=== PATIENT | female | born 1940 | race Caucasian/White ===

== ENCOUNTER → 2016-12-23 | Outpatient (CLI) | payer BC ==
[~2016-12-23] MED LIST: AMLO5TAB2 PO; ATOR-54 PO; BIMA0.01 OPB; BIMA0.03 OPB; BRIM0.1S OPB; CIPR-255 PO; DORZ1SOL6 OPB; IBUP-103 PO; METF500T PO; NEPTAZANE PO; PRM/45 PO
[2016-12-23 09:55] LABS: ESTIMATED AVERAGE GLUCOSE 137 mg/dl; HA1C FLAG Normal (Normal)
== END | disposition home or self-care (01) ==
LOC: C.LAB1850 08:39
PROVIDERS: ATTEND Internal Medicine
DX: E11.9 Type 2 diabetes mellitus without complications (principal)

== ENCOUNTER → 2017-01-05 | Outpatient (CLI) | payer BC ==
--- NOTE | 2017-01-05 16:46 | DIAGNOSTIC IMAGING REPORT ---
SACRUM COCCYX MIN 2 VIEWS CLINICAL HISTORY: E78.00 [id number] pain COMPARISON STUDY: None FINDINGS: Mild degenerative change of the sacroiliac joints. Sacral foramina are symmetric. No acute abnormality of the sacrococcygeal region. Evidence for prior bladder suspension procedure. IMPRESSION: Mild to moderate degenerative change. No acute process. Electronically signed by: Bryn Aggarwal M.D. 01/05/2017 4:44 PM Dictated Date/Time: 01/05/2017 4:43 PM
--- NOTE | 2017-01-05 17:00 | DIAGNOSTIC IMAGING REPORT ---
LUMBAR SPINE 5 VIEWS HISTORY: E78.00 [id number] COMPARISON: None. FINDINGS: There is no fracture. No subluxation. Moderate degenerative disc change throughout IMPRESSION: No fracture or subluxation within the lumbar spine. Moderate degenerative disc change throughout Electronically signed by: Bryn Aggarwal M.D. 01/05/2017 4:58 PM Dictated Date/Time: 01/05/2017 4:44 PM
--- NOTE | 2017-01-05 17:02 | DIAGNOSTIC IMAGING REPORT ---
RIGHT HIP UNILATERAL 2 VIEWS CLINICAL HISTORY: Right hip pain. COMPARISON STUDY: Right hip 09/24/2014. FINDINGS: Moderate osteoarthritis within the right hip demonstrated by cartilage space narrowing, subchondral sclerosis, subchondral cystic change, and marginal osteophytes. This is similar to the prior study. No acute fracture or dislocation. The visualized pelvic bones are intact. Soft tissues are unremarkable. IMPRESSION: Moderate right hip osteoarthritis. This is similar to the prior study. No fractures. Electronically signed by: Simón Saab M.D. 01/05/2017 5:00 PM Dictated Date/Time: 01/05/2017 4:58 PM
== END | disposition home or self-care (01) ==
LOC: C.RAD1850 15:43
PROVIDERS: ATTEND Internal Medicine
DX: E78.00 Pure hypercholesterolemia, unspecified (principal); M16.11 Unilateral primary osteoarthritis, right hip

== ENCOUNTER 2017-01-12 12:34 | Observation (INO) | payer BC ==
[~2017-01-12] VITALS: Ht 162.6 cm; Wt 61.1 kg
[~2017-01-12 12:34] MED LIST changes: -BIMA0.01 OPB; -IBUP-103 PO
[2017-01-12] MEDS ORDERED: IBUP-103 PO (14:09)
[2017-01-12] MEDS ORDERED: BIMA0.01 OPB (14:14)
--- NOTE | 2017-01-12 14:57 | DIAGNOSTIC IMAGING REPORT ---
CHEST ONE VIEW PORTABLE CLINICAL HISTORY: Chest pain. COMPARISON STUDY: None. FINDINGS: Lung volumes are normal. Lungs are clear. There is no pneumothorax or pleural effusion. Cardiac size is normal. Mediastinal contours are normal. There is no evidence of pulmonary edema. There are cholecystectomy clips. IMPRESSION: No acute cardiopulmonary findings. Electronically signed by: Quirino Padilla M.D. 01/12/2017 2:56 PM Dictated Date/Time: 01/12/2017 2:54 PM
[2017-01-12 15:36] LABS: BASO % 0.2 %; BASO ABS # 0.01 K/uL (0-0.2); COMPLETE YES; EOS % 2.2 %; HEMATOCRIT 41.4 % (37-47); IG% 0.2 %; LYMPH % 44.8 %; LYMPH ABS # 2.19 K/uL (1.2-3.4); MEAN CELL VOLUME 93.7 fL (80-100); MEAN CORPUSCULAR HEMOGLOBIN 32.8 pg (25-34); MEAN PLATELET VOLUME 10.6 fL (7.4-10.4); MONO % 8.6 %; PLATELET COUNT 141 K/uL (130-400); RED BLOOD COUNT 4.42 M/uL (4.2-5.4); WHITE BLOOD COUNT 4.89 K/uL (4.8-10.8)
[2017-01-12] MEDS ORDERED: NITROGLYCERIN OINT 2% 1GM PACKET EXT ONE (15:45)
[2017-01-12 15:47] LABS: PARTIAL THROMBOPLASTIN RATIO 1.1; PROTHROMBIN TIME (PATIENT) 10.4 SECONDS (9.0-12.0)
[2017-01-12 16:00] LABS: BUN/CREATININE RATIO 15.7 (10-20); CALCIUM 8.8 mg/dl (8.5-10.1); CREATININE 0.82 mg/dl (0.60-1.20); POTASSIUM 3.7 mmol/L (3.5-5.1)
--- NOTE | 2017-01-12 16:40 | History and Physical ---
History & Physical Date of Service Jan 12, 2017. History & Physical cp rule out acs [id number] DM, HTN dyslipidemia, age, typical chest pain , eliza score 3 stress test ordered
[2017-01-12] MEDS ORDERED: HydrALAZINE HCL 20 MG/ML VIAL IV. PRN (16:45)
[2017-01-12 17:57] VITALS: BP 155/94; PULSE 100; TEMP 36.8; O2SAT 100
--- NOTE | 2017-01-12 18:01 | EMERGENCY ROOM VISIT NOTE ---
History Report prepared by Amos: Dee Sanchez Under the Supervision of: Dr. Kemal Henderson M.D. First contact with patient: 14:22 Chief Complaint: CHEST PAIN Stated Complaint: CHEST PAIN DOWN LEFT ARM Nursing Triage Summary: Triage note: pt reports last night at approx 2130 she had an episode of left sided chest pain and left arm pain that lasted approx 8 miniutes. pt reports her left chest feels sore today. History of Present Illness The patient is a 76 year old female who presents to the Emergency Room with complaints of left sided chest pain starting last night. She is unable to characterize the chest pain she had yesterday. The pain radiated to the left arm. She also had numbness and tingling in the left arm. She was sitting down and watching TV when she had an onset of her pain. She had an improvement in her pain with ambulation. The chest pain lasted for about 5-8 minutes. Her left arm symptoms lasted for a longer amount of time than the chest pain but have resolved. She also had some shortness of breath. Today, the patient started having left sided chest soreness which only occurs with palpation. She otherwise denies any pain. The patient normally walks around about 3-4 times a day and she has not noticed any chest pain with exertion. She denies lightheadedness, diaphoresis, fevers, chills, nausea, vomiting, abdominal pain, back pain, diarrhea, or any other complaints. She denies any history of similar symptoms. She has a history of hypertension and borderline diabetes. She has a family history of stroke and aneurysm. About 2 weeks ago, she lost her balance and fell down. She denies any injuries. About 3 weeks ago, she had a dry cough but denies any other cold-like symptoms. She does not smoke cigarettes. Source of History: patient Onset: last night Position: chest (left) Quality: other (soreness currently) Modifying Factors (Worsening): other (palpation) Associated Symptoms: + SOB, No back pain, No chills, No diaphoresis, No diarrhea, No fevers, No nausea, No vomiting Review of Systems See HPI for pertinent positives & negatives. A total of 10 systems reviewed and were otherwise negative. Past Medical & Surgical Medical Problems: (1) Borderline diabetes (2) chest pain rule out acs (3) Hypertension (4) Kidney stone Family History Diabetes mellitus FH: aneurysm Hypertension Kidney disease Kidney stones Seizures Stroke Social History Smoking Status: Never Smoker Alcohol Use: none Marital Status: Occupation Status: retired Current/Historical Medications Scheduled Amlodipine Besylate (Norvasc), 5 MG PO DAILY Atorvastatin (Lipitor), 20 MG PO HS Bimatoprost (Lumigan), 1 DROP OPB HS Brimonidine Tartrate (Alphagan P Oph), 1 DROP OPB BID Dorzolamide Hcl-Timolol Maleat (Cosopt Oph), 1 DROP OPB BID Estrogens, Conjugated (Premarin), 0.45 MG PO DAILY Ibuprofen Tab (Advil), 200 MG PO DAILY Metformin Hcl (Glucophage), 500 MG PO BID [Neptazane], 25 MG PO BID Allergies Coded Allergies: No Known Allergies (Verified , 01/12/17) Physical Exam Vital Signs Date Time Temp Pulse Resp B/P Pulse Ox O2 Delivery O2 Flow Rate FiO2 01/12/17 16:17 156/86 01/12/17 16:03 181/108 01/12/17 15:40 98 Room Air 01/12/17 12:43 36.9 71 18 138/90 97 Room Air Physical Exam Constitutional: Vital signs reviewed. Eyes: Pupils are equal round reactive to light. Conjunctiva are noninjected. ENT: Pharynx is clear without erythema or exudate. Mucous membranes are moist. Neck supple without meningeal signs. Respiratory: Clear to auscultation bilaterally. Breath sounds are equal bilaterally. Cardiovascular: Regular rate and rhythm. No rubs or gallops. GI: Soft, nondistended and nontender. Bowel sounds are present. Musculoskeletal: No peripheral edema. No lower extremity tenderness. Integumentary: No cyanosis. Neurological: The patient is awake and alert. No focal deficits. Psychiatric: Normal affect. Medical Decision & Procedures ER Provider Diagnostic Interpretation: X-ray results as stated below per interpretation by me and the radiologist: CHEST ONE VIEW PORTABLE CLINICAL HISTORY: Chest pain. COMPARISON STUDY: None. FINDINGS: Lung volumes are normal. Lungs are clear. There is no pneumothorax or pleural effusion. Cardiac size is normal. Mediastinal contours are normal. There is no evidence of pulmonary edema. There are cholecystectomy clips. IMPRESSION: No acute cardiopulmonary findings. Electronically signed by: Quirino Padilla M.D. 01/12/2017 2:56 PM Dictated Date/Time: 01/12/2017 2:54 PM Laboratory Results 01/12/17 15:25 Red Blood Count 4.42, Mean Corpuscular Volume 93.7, Mean Corpuscular Hemoglobin 32.8, Mean Corpuscular Hemoglobin Concent 35.0, Mean Platelet Volume 10.6, Neutrophils (%) (Auto) 44.0, Lymphocytes (%) (Auto) 44.8, Monocytes (%) (Auto) 8.6, Eosinophils (%) (Auto) 2.2, Basophils (%) (Auto) 0.2, Neutrophils # (Auto) 2.15, Lymphocytes # (Auto) 2.19, Monocytes # (Auto) 0.42, Eosinophils # (Auto) 0.11, Basophils # (Auto) 0.01 01/12/17 15:25 Test 01/12/17 15:25 01/12/17 15:29 White Blood Count 4.89 K/uL (4.8-10.8) Red Blood Count 4.42 M/uL (4.2-5.4) Hemoglobin 14.5 g/dL (12.0-16.0) Hematocrit 41.4 % (37-47) Mean Corpuscular Volume 93.7 fL (80-100) Mean Corpuscular Hemoglobin 32.8 pg (25-34) Mean Corpuscular Hemoglobin Concent 35.0 g/dl (32-36) Platelet Count 141 K/uL (130-400) Mean Platelet Volume 10.6 fL (7.4-10.4) Neutrophils (%) (Auto) 44.0 % Lymphocytes (%) (Auto) 44.8 % Monocytes (%) (Auto) 8.6 % Eosinophils (%) (Auto) 2.2 % Basophils (%) (Auto) 0.2 % Neutrophils # (Auto) 2.15 K/uL (1.4-6.5) Lymphocytes # (Auto) 2.19 K/uL (1.2-3.4) Monocytes # (Auto) 0.42 K/uL (0.11-0.59) Eosinophils # (Auto) 0.11 K/uL (0-0.5) Basophils # (Auto) 0.01 K/uL (0-0.2) RDW Standard Deviation 44.2 fL (36.4-46.3) RDW Coefficient of Variation 12.9 % (11.5-14.5) Immature Granulocyte % (Auto) 0.2 % Immature Granulocyte # (Auto) 0.01 K/uL (0.00-0.02) Prothrombin Time 10.4 SECONDS (9.0-12.0) Prothromb Time International Ratio 1.0 (0.9-1.1) Activated Partial Thromboplast Time 27.6 SECONDS (21.0-31.0) Partial Thromboplastin Ratio 1.1 Anion Gap 11.0 mmol/L (3-11) Est Creatinine Clear Calc Drug Dose 49.6 ml/min Estimated GFR () 80.0 Estimated GFR (Non- 69.0 BUN/Creatinine Ratio 15.7 (10-20) Calcium Level 8.8 mg/dl (8.5-10.1) Bedside Troponin I 0.000 ng/ml (0-0.045) Laboratory results as reviewed by me. Medications Administered Medications (Trade) Dose Ordered Sig/Hilaria Route Start Time Stop Time Status Last Admin Dose Admin Nitroglycerin (Nitroglycerin 2% Oint) 0.5 inch NOW ONCE EXT 01/12/17 15:45 01/12/17 15:46 DC 01/12/17 15:54 0.5 INCH ECG Indication: chest pain Rate (beats per minute): 74 Rhythm: normal sinus Findings: RBBB (incomplete), no acute ischemic change, no ectopy ED Course 1422: The patient was evaluated in room C02B. A complete history and physical exam was performed. 1545: Nitroglycerin 0.5 inch EXT 1606: I reevaluated the patient who currently denies any symptoms. I discussed the results and findings with her. She verbalized agreement of the treatment plan. The patient will be evaluated for further management and care. 1608: I discussed the patient's case with Dr. Thacker, from [facility]. Medical Decision This is a 76-year-old female who presents with chest discomfort. Differential diagnosis includes unstable angina, SD, pleurisy, pneumonia, GERD. I did perform a limited focused review of portions of the patient's old chart on the electronic medical record. The patient has had no recent pertinent visits to this hospital. I did evaluate the patient as noted above. IV access was established. The patient was placed on a continuous shelter monitor. Her blood pressure was elevated. I did give her nitroglycerin paste. I did order and personally review the patient's 12-lead EKG and chest x-ray as described above. She has no acute ischemic changes. I did order and review the patient's blood work as noted in the electronic medical record. Troponin is negative. I did reassess the patient. She has no chest discomfort. I did discuss her test results with her. I did recommend hospitalization for repeat cardiac enzymes and monitoring of her blood pressure. I did discuss the case with the hospitalist and case management associate. Consults Time Called: 1606 Consulting Physician: Dr. Thacker, from [facility] Returned Call: 1608 I discussed the patient's case with Dr. Thacker, from [facility]. Impression Primary Impression: Acute chest pain Additional Impression: Hypertension Scribe Attestation The scribe's documentation has been prepared under my direct and personally reviewed by me in its entirety. I confirm that the note above accurately reflects all work, treatment, procedures, and medical decision making performed by me. Departure Information Dispostion Being Evaluated By Hospitalist Referrals Naldo Flanagan M.D. (PCP) Patient Instructions My [facility] Problem Qualifiers
[2017-01-12 18:02] VITALS: Ht 162.6 cm; Wt 61.1 kg
--- NOTE | 2017-01-12 18:32 | HISTORY & PHYSICAL EXAMINATION ---
DATE OF ADMISSION: 01/12/2017 This is observation H\T\P, 25 minutes. CHIEF COMPLAINT: Intermittent chest pain. HISTORY OF PRESENT ILLNESS: A 76-year-old white female with a significant past medical history of hypertension, dyslipidemia, diabetic, coming into the hospital Emergency Department because of the above chief complaint. She reported left side chest pain, started from last night. The pain was dull pain, 5-6/10, radiation to the left arm, lasting about 4-5 minutes. Also associated with numbness in her left arm. The pain was started when she was sitting and watching TV. It is improved when she is up and walks. The left arm symptoms last for a longer amount of time. She was having some shortness of breath. Today, she has left side chest pain again, associated with palpitations. She reported most of the time she is up and walks without any problem of chest pain. In the Emergency Room, she had lab studies, chest x-ray and EKG. It was not remarkable. However, the blood pressure was significantly high, up to 181/108. I was asked for possible observation of patient in the hospital. When I see the patient, she is awake, alert, and orientated, pleasant. Denied any pain, denied any cough, shortness of breath. No fever or chills. Not feeling generalized weakness. Denied sputum. Denied chest pain. Denied nauseation, vomiting, abdominal pain, diarrhea, or constipation. Denied dysuria, urgency and frequencies. Denied headache, blurry vision, double vision. Denied facial droop, slurry speech or local weakness. PAST MEDICAL HISTORY: Like I mentioned in the above, which includes hypertension, dyslipidemia, well controlled diabetic and arthritis. SOCIAL HISTORY: Denied alcohol abuse disorder, denied illicit drug abuse, denied tobacco abuse disorder. FAMILY HISTORY: Includes diabetic, stroke, seizure. CURRENT MEDICATIONS: Include: 1. Amlodipine 5 mg p.o. daily. 2. Atorvastatin 20 mg p.o. at bedtime. 3. Lumigan 1 drop OPB at bedtime. 4. Alphagan 1 drop OPB b.i.d. 5. Cosopt 1 drop OPB b.i.d. 6. Premarin 0.45 mg p.o. daily. 7. Advil 200 mg p.o. daily. 8. Metformin 500 mg p.o. b.i.d. 9. Neptazane 25 mg p.o. b.i.d. ALLERGIES: No known drug allergies. PHYSICAL EXAMINATION: VITAL SIGNS: Temperature is 36.9, pulse 71, respiration rate 18, blood pressure 138/90, pulse ox was 97% in room air. GENERAL: The patient is a white female, awake, alert and orientated, pleasant, conversational, follows all commands. HEAD: Normocephalic. EYES: Pupils equal, round, respond to light. EARS: Ear was normal. NOSE: Normal. NECK: Supple. Thyroid, no enlargement. Trachea midline. HEART: Regular rhythm. S1, S2. LUNGS: Decreased breathing sounds. There was no wheezing, rhonchi or crackle. ABDOMEN: Soft, nontender. Bowel sound was positive. GENITOURINARY AND RECTAL: Deferred. Bilateral CVA was nontender. MUSCULOSKELETAL SYSTEM: There was no edema of bilateral lower extremities. There was no cyanosis, clubbing. SKIN: Has no rashes, no cyanosis. NEUROLOGICAL EVALUATION: She is awake, alert, and orientated, no focal deficits. Cranial nerves II-XII were intact. PSYCHIATRY: Normal affect. LABORATORY STUDIES: WBC 4.8, hemoglobin 14, platelet 140. PT/INR was 10/1. BMP: Sodium 139, potassium 3.7, BUN 30, creatinine 0.8. Blood glucose 115. EKG, there were no ST-T phase changes. Normal sinus rhythm. IMAGING STUDIES: Chest x-ray has no acute disease. ASSESSMENT: A 76-year-old white female with the problems seen below: 1. Chest pain, need to rule acute coronary syndrome. 2. Dyslipidemia. 3. Hypertension. 4. Diabetic. PLAN: 1. Currently, cardiac enzyme troponin is negative. No EKG changes. However, patient has risk factors for the ACS. Her JACQUELINE score is around 3, which include her age, risk factors and possible typical chest pain radiation to the left arm. JACQUELINE score is 3, risk of ACS is 13%. Therefore, I will observe her in the hospital. Check cardiac enzyme troponin x2 sets more, chest pain protocol. We will start aspirin, check fasting lipid panel, check hemoglobin A1c. Start a beta vitaly. At the same time because JACQUELINE score is 3, I will order stress echo tomorrow to rule out acute coronary syndrome. 2. Deep venous thrombosis prophylaxis will be heparin. GI prophylaxis will be Protonix. I discussed with patient about the care plan. I answered all the questions. The patient is full code.
[2017-01-12] MEDS ORDERED: GLUCOSE 10 TABS/TUBE PO PRN (19:00)
[2017-01-12] MEDS ORDERED: GLUCOSE 40% GEL 15 GM TUBE PO PRN (19:00)
[2017-01-12] MEDS ORDERED: GLUCAGON FOR INJ 1 MG VIAL SQ PRN (19:00)
[2017-01-12] MEDS ORDERED: DEXTROSE 50% 50 ML SYR IV PRN (19:00)
[2017-01-12] MEDS: INSULIN ASPART 100 UNITS/ML 3 ML PEN SC SCH (20:44)
[2017-01-12] MEDS: HEPARIN SOD 5000 UNIT/0.5 ML CARP SQ SCH (20:48)
[2017-01-12] MEDS: DORZOLAMIDE/TIMOLOL 22.3/6.8MG/ML 10 ML BTL OPB SCH (20:48)
[2017-01-12] MEDS: METOPROLOL TARTRATE 25 MG TAB PO SCH (20:54)
[2017-01-12 20:55] VITALS: BP 150/77; PULSE 96
[2017-01-12] MEDS ORDERED: ATORVASTATIN 20 MG TAB PO SCH (21:00)
[2017-01-12] MEDS ORDERED: METHAZOLAMIDE 25 MG PO SCH (21:00)
[2017-01-12] MEDS ORDERED: BRIMONIDINE TARTRATE OPB SCH (21:00)
[2017-01-12] MEDS ORDERED: BIMATOPROST 0.01% OP SOLN 2.5 ML BTL OPB SCH (21:00)
[2017-01-12] MEDS ORDERED: IV FLUIDS COMPLETED PRN (21:30)
[2017-01-12] MEDS: NITROGLYCERIN OINT 2% 1GM PACKET EXT SCH (22:56)
[2017-01-12 23:05] LABS: CKMB/CK RATIO 2.4 (0-3.0)
[2017-01-13] VITALS (7 sets, daily range): BP systolic 132–148; BP diastolic 74–79; PULSE 62–70; TEMP 36.8–36.9; O2SAT 95–98
[2017-01-13] MEDS: NITROGLYCERIN OINT 2% 1GM PACKET EXT SCH ×2 (04:25→10:49)
[2017-01-13] MEDS: INSULIN ASPART 100 UNITS/ML 3 ML PEN SC SCH ×2 (06:30→11:00)
[2017-01-13 07:26] LABS: CHOLESTEROL 119 mg/dl (0-200); CHOLESTEROL/HDL RATIO 2.7; CKMB/CK RATIO 2.5 (0-3.0); HDL CHOLESTEROL 44 mg/dl; LDL CHOLESTEROL CALCULATED 47 mg/dl; TRIGLYCERIDES 139 mg/dl (0-150); VERY LOW DENSITY LIPOPROT CALC 28 mg/dl
[2017-01-13 07:53] LABS: ESTIMATED AVERAGE GLUCOSE 123 mg/dl; HA1C FLAG Normal (Normal)
[2017-01-13] MEDS ORDERED: ASPIRIN 325 MG ECTAB PO SCH (09:00)
[2017-01-13] MEDS ORDERED: IBUPROFEN 200 MG TAB PO SCH (09:00)
[2017-01-13] MEDS ORDERED: AMLODIPINE BESYLATE 5 MG TAB PO SCH (09:00)
[2017-01-13] MEDS ORDERED: PANTOprazole SOD 40 MG TAB PO SCH (09:00)
[2017-01-13] MEDS: HEPARIN SOD 5000 UNIT/0.5 ML CARP SQ SCH (09:00)
[2017-01-13] MEDS ORDERED: DOBUTamine HCL 12.5 MG/ML 20 ML VIAL ONE (09:13)
[2017-01-13] MEDS ORDERED: METOPROLOL TARTRATE 1 MG/ML VIAL ONE (09:13)
[2017-01-13] MEDS ORDERED: ATROPINE SULFATE 0.1 MG/ML 5ML SYR ONE (09:13)
[2017-01-13] MEDS: METOPROLOL TARTRATE 25 MG TAB PO SCH (10:44)
[2017-01-13] MEDS: DORZOLAMIDE/TIMOLOL 22.3/6.8MG/ML 10 ML BTL OPB SCH (10:45)
--- NOTE | 2017-01-13 12:45 | DOBUTAMINE ECHO ---
*NOTICE TO RECEIVING [employer] This information is strictly Confidential and protected under [place] law. [place] law prohibits you from making any further disclosure of this information unless further disclosure is expressly permitted by the written consent of the person to whom it pertains or is authorized by law. A general authorization for the release of medical or other information is not sufficient for this purpose. Hospital accepts no responsibility if the information is made available to any other person, INCLUDING THE PATIENT. Interpretation Summary * Name: SIRENA TIJERINA Study Date: 01/13/2017 09:38 AM BP: 126/68 mmHg * Patient Location: 89 HR: 66 * : 1940 (M/d/yyyy) Gender: Female Height: 64 in * Age: 76 yrs Ethnicity: CA Weight: 139 lb * Ordering Physician: Elias Thacker * Referring Physician: Naldo Flanagan * Performed By: Cherry Huggins RCS * * Reason For Study: CHEST PAIN * BSA: 1.7 m2 * -- Conclusions -- * Mild aortic regurgitation. * Grade I diastolic dysfunction, (abnormal relaxation pattern). * No evidence of inducible ischemia. Normal baseline LV function with good augmentation on dobutamine. Increased atrial ectopy with infusion without additional EKG changes. No symptoms reported. Procedure Details * DOBUTAMINE ECHO, CPT#01506 * ECHO COLOR FLOW, CPT #[id number] * ECHO DOPPLER, CPT #[id number] Left Ventricular Findings with Stress * No evidence of inducible ischemia. Normal baseline LV function with good augmentation on dobutamine. Increased atrial ectopy with infusion without additional EKG changes. No symptoms reported. Left Ventricle * The left ventricle is normal in size. * Ejection Fraction = 50-55%. * The left ventricular wall motion is normal at rest. * Resting wall motion: Normal. Stress wall motion: Appropriate increase in Left ventricular systolic function and decrease in cavity size. No stress induced segmental wall motion abnormalities. Right Ventricle * The right ventricle is grossly normal size. Mitral Valve * The mitral valve is grossly normal. Tricuspid Valve * The tricuspid valve is not well visualized. * There is mild tricuspid regurgitation. Aortic Valve * The aortic valve is trileaflet. * No hemodynamically significant valvular aortic stenosis. * Mild aortic regurgitation. Pericardium * There is no pericardial effusion. Stress Parameters * Normal baseline electrocardiogram. * Single PVC * Stress ECG: No ST changes. No arrhythmias. * Arrhythmia induced during stress: frequent PAC's. * The stress portion of this study was personally supervised by the undersigned interpreting physician. * Rest heart rate was '66' BPM. * Rest blood pressure was '126/68' * Maximum heart rate achieved was 141 bpm. * Maximum heart rate was 98 % of maximum age-predicted heart rate. * Maximum blood pressure was '180/38' * Maximum Dobutamine infusion rate was '30' mcg/kg/min. * A total of 0 mg of intravenous Atropine was used to supplement Dobutamine for heart rate response. * Dobutamine infusion was terminated due to achieving target heart rate * A total of 5.0 mg of IV Metoprolol was administered to reverse Dobutamine-induced tachycardia. Left Ventricular Diastolic Function * Grade I diastolic dysfunction, (abnormal relaxation pattern). MMode 2D Measurements and Calculations IVSd 1.1 cm IVSs 1.4 cm LVIDd 2.7 cm LVIDs 1.9 cm LVPWd 0.87 cm LVPWs 1.3 cm IVS/LVPW 1.3 FS 27.8 % EDV(Teich) 26.8 ml ESV(Teich) 11.8 ml EF(Teich) 55.8 % EDV(cubed) 19.5 ml ESV(cubed) 7.4 ml EF(cubed) 62.3 % % IVS thick 24.3 % % LVPW thick 50.5 % LV mass(C)d 70.8 grams LV mass(C)dI 42.3 grams/m\S\2 LV mass(C)s 79.2 grams LV mass(C)sI 47.2 grams/m\S\2 SV(Teich) 15.0 ml SI(Teich) 8.9 ml/m\S\2 SV(cubed) 12.2 ml SI(cubed) 7.3 ml/m\S\2 Ao root diam 3.3 cm Ao root area 8.6 cm\S\2 ACS 1.7 cm LA dimension 2.8 cm LA/Ao 0.84 LVOT diam 1.8 cm LVOT area 2.5 cm\S\2 LVAd ap4 23.3 cm\S\2 LVLd ap4 7.0 cm EDV(MOD-sp4) 63.7 ml EDV(sp4-el) 65.8 ml LVAs ap4 13.2 cm\S\2 LVLs ap4 5.5 cm ESV(MOD-sp4) 28.0 ml ESV(sp4-el) 27.0 ml EF(MOD-sp4) 56.1 % EF(sp4-el) 59.1 % LVAd ap2 23.7 cm\S\2 LVLd ap2 7.3 cm EDV(MOD-sp2) 66.0 ml EDV(sp2-el) 65.5 ml LVAs ap2 15.5 cm\S\2 LVLs ap2 6.3 cm ESV(MOD-sp2) 32.7 ml ESV(sp2-el) 32.4 ml EF(MOD-sp2) 50.4 % EF(sp2-el) 50.5 % LVLd %diff 3.9 % EDV(MOD-bp) 63.7 ml LVLs %diff 13.4 % ESV(MOD-bp) 32.1 ml EF(MOD-bp) 49.6 % SV(MOD-sp4) 35.7 ml SI(MOD-sp4) 21.3 ml/m\S\2 SV(MOD-sp2) 33.2 ml SI(MOD-sp2) 19.8 ml/m\S\2 SV(MOD-bp) 31.6 ml SI(MOD-bp) 18.9 ml/m\S\2 SV(sp4-el) 38.9 ml SI(sp4-el) 23.2 ml/m\S\2 SV(sp2-el) 33.1 ml SI(sp2-el) 19.7 ml/m\S\2 Doppler Measurements and Calculations Ao V2 max 105.9 cm/sec Ao max PG 4.5 mmHg Ao max PG (full) 2.1 mmHg EVELYN(V,A) 1.8 cm\S\2 EVELYN(V,D) 1.8 cm\S\2 AI max lewis 472.5 cm/sec AI max PG 89.3 mmHg AI dec slope 237.0 cm/sec\S\2 AI P1/2t 583.9 msec LV V1 max PG 2.4 mmHg LV V1 max 77.1 cm/sec PA V2 max 94.2 cm/sec PA max PG 3.5 mmHg TR max lewis 313.2 cm/sec
--- NOTE | 2017-01-13 15:11 | Discharge Instructions ---
Discharge Instructions Admission Reason for Admission: Chest Pain Rule Out Acs Discharge Discharge Diagnosis / Problem: stable for home Discharge Goals Goal(s): Decrease discomfort Activity Recommendations Activity Limitations: resume your previous activity . Current Hospital Diet Patient's current hospital diet: Diabetes Type 2 Diet Discharge Diet Recommended Diet: AHA Diet (Heart Healthy), Low Sodium Diet (2gm Na) Pending Studies Studies pending at discharge: no Laboratory Results Hemoglobin A1c Test 01/13/17 06:35 Range/Units Estimated Average Glucose 123 mg/dl Hemoglobin A1c 5.9 H 4.5-5.6 % Lipid Panel Test 01/13/17 06:35 Range/Units Triglycerides Level 139 0-150 mg/dl Cholesterol Level 119 0-200 mg/dl HDL Cholesterol 44 mg/dl Cholesterol/HDL Ratio 2.7 LDL Cholesterol, Calculated 47 mg/dl Medical Emergencies . Who to Call and When: Medical Emergencies: If at any time you feel your situation is an emergency, please call 911 immediately. . Non-Emergent Contact Non-Emergency issues call your: Primary Care Provider . . "Provider Documentation" section prepared by Henna Quezada. VTE Core Measure Inpt VTE Proph given/why not?: Unfractionated heparin SQ
--- NOTE | 2017-01-13 15:17 | Discharge Summary ---
Discharge Summary Date of Service Jan 13, 2017. Discharge Summary Admission Date: Jan 12, 2017 at 16:38 Discharge Date: Jan 13, 2017 Discharge Disposition: Home Principal Diagnosis: Stable for home. Problems/Secondary Diagnoses: (1) Hypertension Status: Chronic Procedures: [address] [place] [address] Performing Location: [facility] Patient Name: SIRENA TIJERINA Dictating Provider: Jaden Aleman MD Dictation Date: Report Signed By: Date: 1940 Pickling Grader: LETTY Room/Bed: [facility] Family Physician: Naldo Flanagan M.D. SC: C.MED Primary Care Physician: Naldo Flanagan M.D. Adm Date: 01/12/17 Attending Physician: Elias Thacker MD, PhD Dis Date: Admitting Physician: Elias Thacker MD, PhD Ordering Physician: *NOTICE TO RECEIVING LIBERTARIAN AGENCY This information is strictly Confidential and protected under [place] law. [place] law prohibits you from making any further disclosure of this information unless further disclosure is expressly permitted by the written consent of the person to whom it pertains or is authorized by law. A general authorization for the release of medical or other information is not sufficient for this purpose. Hospital accepts no responsibility if the information is made available to any other person, INCLUDING THE PATIENT. Interpretation Summary * Name: SIRENA TIJERINA Study Date: 01/13/2017 09:38 AM BP: 126/68 mmHg * Patient Location: [facility] HR: 66 * : 1940 (M/d/yyyy) Gender: Female Height: 64 in * Age: 76 yrs Ethnicity: [place] Weight: 139 lb * Ordering Physician: Elias Thacker * Referring Physician: Naldo Flanagan * Performed By: [facility] * * Reason For Study: CHEST PAIN * BSA: 1.7 m2 * -- Conclusions -- * Mild aortic regurgitation. * Grade I diastolic dysfunction, (abnormal relaxation pattern). * No evidence of inducible ischemia. Normal baseline LV function with good augmentation on dobutamine. Increased atrial ectopy with infusion without additional EKG changes. No symptoms reported. Procedure Details * DOBUTAMINE ECHO, CPT#75976 * ECHO COLOR FLOW, CPT #[id number] * ECHO DOPPLER, CPT #68500 Left Ventricular Findings with Stress * No evidence of inducible ischemia. Normal baseline LV function with good augmentation on dobutamine. Increased atrial ectopy with infusion without additional EKG changes. No symptoms reported. Left Ventricle * The left ventricle is normal in size. * Ejection Fraction = 50-55%. * The left ventricular wall motion is normal at rest. * Resting wall motion: Normal. Stress wall motion: Appropriate increase in Left ventricular systolic function and decrease in cavity size. No stress induced segmental wall motion abnormalities. Right Ventricle * The right ventricle is grossly normal size. Mitral Valve * The mitral valve is grossly normal. Tricuspid Valve * The tricuspid valve is not well visualized. * There is mild tricuspid regurgitation. Aortic Valve * The aortic valve is trileaflet. * No hemodynamically significant valvular aortic stenosis. * Mild aortic regurgitation. Pericardium * There is no pericardial effusion. Stress Parameters * Normal baseline electrocardiogram. * Single PVC * Stress ECG: No ST changes. No arrhythmias. * Arrhythmia induced during stress: frequent PAC's. * The stress portion of this study was personally supervised by the undersigned interpreting physician. * Rest heart rate was '66' BPM. * Rest blood pressure was '126/68' * Maximum heart rate achieved was 141 bpm. * Maximum heart rate was 98 % of maximum age-predicted heart rate. * Maximum blood pressure was '180/38' * Maximum Dobutamine infusion rate was '30' mcg/kg/min. * A total of 0 mg of intravenous Atropine was used to supplement Dobutamine for heart rate response. * Dobutamine infusion was terminated due to achieving target heart rate * A total of 5.0 mg of IV Metoprolol was administered to reverse Dobutamine- induced tachycardia. Left Ventricular Diastolic Function * Grade I diastolic dysfunction, (abnormal relaxation pattern). MMode 2D Measurements and Calculations IVSd 1.1 cm IVSs 1.4 cm LVIDd 2.7 cm LVIDs 1.9 cm LVPWd 0.87 cm LVPWs 1.3 cm IVS/LVPW 1.3 FS 27.8 % EDV(Teich) 26.8 ml ESV(Teich) 11.8 ml EF(Teich) 55.8 % EDV(cubed) 19.5 ml ESV(cubed) 7.4 ml EF(cubed) 62.3 % % IVS thick 24.3 % % LVPW thick 50.5 % LV mass(C)d 70.8 grams LV mass(C)dI 42.3 grams/m\S\2 LV mass(C)s 79.2 grams LV mass(C)sI 47.2 grams/m\S\2 SV(Teich) 15.0 ml SI(Teich) 8.9 ml/m\S\2 SV(cubed) 12.2 ml SI(cubed) 7.3 ml/m\S\2 Ao root diam 3.3 cm Ao root area 8.6 cm\S\2 ACS 1.7 cm LA dimension 2.8 cm LA/Ao 0.84 LVOT diam 1.8 cm LVOT area 2.5 cm\S\2 LVAd ap4 23.3 cm\S\2 LVLd ap4 7.0 cm EDV(MOD-sp4) 63.7 ml EDV(sp4-el) 65.8 ml LVAs ap4 13.2 cm\S\2 LVLs ap4 5.5 cm ESV(MOD-sp4) 28.0 ml ESV(sp4-el) 27.0 ml EF(MOD-sp4) 56.1 % EF(sp4-el) 59.1 % LVAd ap2 23.7 cm\S\2 LVLd ap2 7.3 cm EDV(MOD-sp2) 66.0 ml EDV(sp2-el) 65.5 ml LVAs ap2 15.5 cm\S\2 LVLs ap2 6.3 cm ESV(MOD-sp2) 32.7 ml ESV(sp2-el) 32.4 ml EF(MOD-sp2) 50.4 % EF(sp2-el) 50.5 % LVLd %diff 3.9 % EDV(MOD-bp) 63.7 ml LVLs %diff 13.4 % ESV(MOD-bp) 32.1 ml EF(MOD-bp) 49.6 % SV(MOD-sp4) 35.7 ml SI(MOD-sp4) 21.3 ml/m\S\2 SV(MOD-sp2) 33.2 ml SI(MOD-sp2) 19.8 ml/m\S\2 SV(MOD-bp) 31.6 ml SI(MOD-bp) 18.9 ml/m\S\2 SV(sp4-el) 38.9 ml SI(sp4-el) 23.2 ml/m\S\2 SV(sp2-el) 33.1 ml SI(sp2-el) 19.7 ml/m\S\2 Doppler Measurements and Calculations Ao V2 max 105.9 cm/sec Ao max PG 4.5 mmHg Ao max PG (full) 2.1 mmHg EVELYN(V,A) 1.8 cm\S\2 EVELYN(V,D) 1.8 cm\S\2 AI max lewis 472.5 cm/sec AI max PG 89.3 mmHg AI dec slope 237.0 cm/sec\S\2 AI P1/2t 583.9 msec LV V1 max PG 2.4 mmHg LV V1 max 77.1 cm/sec PA V2 max 94.2 cm/sec PA max PG 3.5 mmHg TR max lewis 313.2 cm/sec Medication Reconciliation Continued Medications: Amlodipine Besylate (Norvasc) 5 Mg Tab 5 MG PO DAILY, TAB Atorvastatin (Lipitor) 20 Mg Tab 20 MG PO HS, TAB Bimatoprost (Lumigan) 0.01 % Darlyn 1 DROP OPB HS for 30 Days, #2.5 ML 3 Refills Brimonidine Tartrate (Alphagan P Oph) 0.1 % Darlyn 1 DROP OPB BID, BTL Dorzolamide Hcl-Timolol Maleat (Cosopt Oph) 1 Darlyn Darlyn 1 DROP OPB BID Estrogens, Conjugated (Premarin) 0.45 Mg Tab 0.45 MG PO DAILY, TAB Ibuprofen Tab (Advil) 200 Mg Tab 200 MG PO DAILY, TAB Metformin Hcl (Glucophage) 500 Mg Tab 500 MG PO BID, TAB [Neptazane] () 25 MG PO BID Hospital Course A 76-year-old white female with a significant past medical history of hypertension, dyslipidemia, diabetic, coming into the hospital Emergency Department because of the above chief complaint. She reported left side chest pain, started from last night. The pain was dull pain, 5-6/10, radiation to the left arm, lasting about 4-5 minutes. Also associated with numbness in her left arm. The pain was started when she was sitting and watching TV. It is improved when she is up and walks. The left arm symptoms last for a longer amount of time. She was having some shortness of breath. Today, she has left side chest pain again, associated with palpitations. She reported most of the time she is up and walks without any problem of chest pain. In the Emergency Room, she had lab studies, chest x-ray and EKG. It was not remarkable. However, the blood pressure was significantly high, up to 181/108. I was asked for possible observation of patient in the hospital. Patient ruled out for ACS with EKG that was unremarkable and negative serial troponins. She had stress test done which was negative for any ischemic changes as above. She is stable for discharge to home. Her BP however was elevated on admission despite taking her meds appropriately. I did advise her on low-salt diet and which foods contain them. Medications (Trade) Dose Ordered Sig/Hilaria Route Start Time Stop Time Status Last Admin Dose Admin Nitroglycerin (Nitroglycerin 2% Oint) 1 inch Q6@0400,1000,1600,2200 EXT 01/12/17 22:00 01/13/17 15:51 DC 01/13/17 10:49 1 INCH Aspirin (Ecotrin Tab) 325 mg QAM PO 01/13/17 09:00 01/13/17 15:51 DC 01/13/17 10:45 325 MG Amlodipine Besylate (Norvasc Tab) 5 mg DAILY PO 01/13/17 09:00 01/13/17 15:51 DC 01/13/17 10:45 5 MG Atorvastatin Calcium (Lipitor Tab) 20 mg HS PO 01/12/17 21:00 01/13/17 15:51 DC 01/12/17 20:50 20 MG Dorzolamide/ Timolol (Cosopt Op Soln) 1 drops BID OPB 01/12/17 21:00 01/13/17 15:51 DC 01/13/17 10:45 1 DROPS Ibuprofen (Advil Tab) 200 mg DAILY PO 01/13/17 09:00 01/13/17 15:51 DC 01/13/17 10:45 200 MG Bimatoprost (Lumigan 0.01%) 1 drops HS OPB 01/12/17 21:00 01/13/17 15:51 DC 01/12/17 20:49 1 DROPS Metoprolol Tartrate (Lopressor Tab) 12.5 mg BID PO 01/12/17 21:00 01/13/17 15:51 DC 01/13/17 10:44 12.5 MG Pantoprazole Sodium (Protonix Tab) 40 mg QAM PO 01/13/17 09:00 01/13/17 15:51 DC 01/13/17 10:46 40 MG Vital Signs Date Time Temp Pulse Resp B/P Pulse Ox O2 Delivery O2 Flow Rate FiO2 01/13/17 15:33 36.8 62 16 95 Room Air 01/13/17 11:27 139/76 No chest pain, no sob. No abd pain, n/v. No new complaints. nad, aox3 eomi, perrl s1 s2 rrr, no murmurs appreciated ctab no w/r/r abd soft nt/nd +BS no LE edema 1. CHest pain - atypical - non-ischemic - BP control 2. HTN - better controlled on current regimen - low-salt diet - cont home regimen with f/u with PCP 3. T2DM - well controlled with A1c of 5.9 - cont metformin Total Time Spent: Greater than 30 minutes This includes examination of the patient, discharge planning, medication reconciliation, and communication with other providers. Discharge Instructions Please refer to the electronic Patient Visit Report (Discharge Instructions) for additional information. Additional Copies To Naldo Flanagan M.D.
== END 2017-01-13 15:51 | disposition home or self-care (01) ==
LOC: ENRESERVDT → ENRESERVTM → C.EDB 12:36 → C.MED 16:38
PROVIDERS: ADMIT Hospitalist; ATTEND Hospitalist
DX: R07.9 Chest pain, unspecified (principal); I10 Essential (primary) hypertension; R06.02 Shortness of breath; E11.9 Type 2 diabetes mellitus without complications; E78.5 Hyperlipidemia, unspecified; Z83.3 Family history of diabetes mellitus; Z82.3 Family history of stroke; Z82.0 Family history of epilepsy and other diseases of the nervous system

== ENCOUNTER → 2017-01-29 | Outpatient (CLI) | payer BC ==
[~2017-01-29] MED LIST changes: +BIMA0.01 OPB; -BIMA0.03 OPB; -CIPR-255 PO; +IBUP-103 PO
== END | disposition home or self-care (01) ==
LOC: C.PATHSPEC 14:06
PROVIDERS: ATTEND Dermatology
DX: L82.0 Inflamed seborrheic keratosis (principal)

== ENCOUNTER → 2017-05-03 | Outpatient (CLI) | payer BC | END | disposition home or self-care (01) | LOC: C.PATH 16:47 | PROVIDERS: ATTEND Dermatology | DX: B07.9 Viral wart, unspecified (principal); L82.1 Other seborrheic keratosis ==

== ENCOUNTER → 2017-07-02 | Outpatient (CLI) | payer BC ==
[2017-07-02 12:37] LABS: ESTIMATED AVERAGE GLUCOSE 148 mg/dl; HA1C FLAG Normal (Normal)
--- NOTE | 2017-07-16 15:21 | CODING QUERY MEDICAL NECESSITY ---
SUPPORTING DIAGNOSIS NEEDED A supporting diagnosis is required for the test/procedure performed on this patient in order for us to be reimbursed by the patient's insurance. Please provide a supporting diagnosis for the following test/procedure listed below next to the test name along with your signature. *If there is no additional diagnosis for this patient that would support the following test/procedure please document that below next to the test/procedure. Test(s)/Procedure(s) that require a supporting diagnosis: * HEMOGLOBIN A1C DIAGNOSIS: Provider Signature: Date: Thank you Radha Starks [employer] Information Management Once completed, please kindly fax back to [phone] For questions please call [phone]
== END | disposition home or self-care (01) ==
LOC: C.LABPBG 08:25
PROVIDERS: ATTEND Internal Medicine
DX: R07.89 Other chest pain (principal); E11.9 Type 2 diabetes mellitus without complications

== ENCOUNTER → 2017-07-08 | Outpatient (CLI) | payer BC | END | disposition home or self-care (01) | LOC: C.RDSM 09:00 | PROVIDERS: ATTEND Physical Medicine & Rehabilitation Sports Medicine | DX: M16.11 Unilateral primary osteoarthritis, right hip (principal) ==

== ENCOUNTER → 2017-10-13 | Outpatient (CLI) | payer BC ==
[2017-10-13 13:13] LABS: BASO % 0.2 %; BASO ABS # 0.01 K/uL (0-0.2); COMPLETE YES; EOS % 3.3 %; HEMATOCRIT 44.8 % (37-47); LYMPH % 32.3 %; LYMPH ABS # 1.37 K/uL (1.2-3.4); MEAN CELL VOLUME 97.6 fL (80-100); MEAN CORPUSCULAR HEMOGLOBIN 32.5 pg (25-34); MEAN CORPUSCULAR HGB CONC 33.3 g/dl (32-36); MEAN PLATELET VOLUME 10.9 fL (7.4-10.4); MONO % 7.3 %; NEUT % 56.9 %; PLATELET COUNT 131 K/uL (130-400); RED BLOOD COUNT 4.59 M/uL (4.2-5.4); WHITE BLOOD COUNT 4.24 K/uL (4.8-10.8)
[2017-10-13 13:40] LABS: URINE APPEARANCE CLEAR (CLEAR); URINE BILIRUBIN NEG (NEG); URINE COLOR YELLOW; URINE NITRITE NEG (NEG); URINE PH 6.5 (4.5-7.5); URINE SPECIFIC GRAVITY 1.008 (1.000-1.030); UROBILINOGEN NEG (NEG)
[2017-10-13 13:48] LABS: MANUAL MICROSCOPIC REQUIRED? NO; REVIEW REQ? NO
[2017-10-13 13:50] LABS: ALT/SGPT 25 U/L (12-78); AST/SGOT 16 U/L (15-37); BLOOD UREA NITROGEN 17 mg/dl (7-18); BUN/CREATININE RATIO 18.4 (10-20); CARBON DIOXIDE 24 mmol/L (21-32); CHLORIDE 104 mmol/L (98-107); CHOLESTEROL 138 mg/dl (0-200); CREATININE 0.95 mg/dl (0.60-1.20); GLUCOSE 175 mg/dl (70-99); POTASSIUM 4.1 mmol/L (3.5-5.1); SODIUM 135 mmol/L (136-145); TRIGLYCERIDES 139 mg/dl (0-150); VERY LOW DENSITY LIPOPROT CALC 28 mg/dl
[2017-10-13 13:51] LABS: ESTIMATED AVERAGE GLUCOSE 140 mg/dl; HA1C FLAG Normal (Normal)
[2017-10-13 14:00] LABS: CHOLESTEROL/HDL RATIO 2.5; HDL CHOLESTEROL 56 mg/dl; LDL CHOLESTEROL CALCULATED 54 mg/dl
--- NOTE | 2017-10-18 11:15 | CODING QUERY MEDICAL NECESSITY ---
SUPPORTING DIAGNOSIS NEEDED Dr. Flanagan, A supporting diagnosis is required for the test/procedure performed on this patient in order for us to be reimbursed by the patient's insurance. Please provide a supporting diagnosis for the following test/procedure listed below next to the test name along with your signature. *If there is no additional diagnosis for this patient that would support the following test/procedure please document that below next to the test/procedure. Test(s)/Procedure(s) that require a supporting diagnosis: * [id number] GLYCATED HEMOGLOBIN DIAGNOSIS: DATE OF SERVICE: 10/13/17 Provider Signature: Date: Thank you Eugene Lucio [facility] Information Management Once completed, please kindly fax back to [phone] For questions please call [phone]
== END | disposition home or self-care (01) ==
LOC: C.LABPBG 08:48
PROVIDERS: ATTEND Internal Medicine
DX: E78.00 Pure hypercholesterolemia, unspecified (principal)

== ENCOUNTER → 2017-11-17 | Outpatient (CLI) | payer BC ==
[~2017-11-17] MED LIST changes: +METH25TA3 PO; +OXYC-57 PO; +WARF2TAB PO
== END | disposition home or self-care (01) ==
LOC: C.PATHSPEC 16:50
PROVIDERS: ATTEND Physician Assistant
DX: B07.9 Viral wart, unspecified (principal)

== ENCOUNTER → 2018-01-17 | Outpatient (CLI) | payer BC ==
[~2018-01-17] MED LIST changes: -METH25TA3 PO; -OXYC-57 PO; -WARF2TAB PO
--- NOTE | 2018-01-17 10:59 | DIAGNOSTIC IMAGING REPORT ---
R PELVIS UNILATERAL HIP 1 VIEW CLINICAL HISTORY: 77 years-old Female presenting with DJD OF RIGHT HIP. TECHNIQUE: Single frontal view of the pelvis and frog-leg lateral view of the right hip were obtained. COMPARISON: 07/08/2017. FINDINGS: Sacroiliac joints, pubic symphysis, and hip joints congruent. Superior joint space loss at the right hip joint evident, similar prior exam. Stable to slight interval increase in right hip joint osteophytosis at the superior femoral head. Subchondral sclerosis in both femoral head and acetabulum unchanged. No femoral neck fracture. The left hip is normal in appearance. IMPRESSION: Stable to slight interval increase and degenerative changes of the right hip, which include osteophytosis, joint space loss, subchondral sclerosis in both femoral head and acetabulum. Electronically signed by: Francisco J Chang M.D. 01/17/2018 10:58 AM Dictated Date/Time: 01/17/2018 10:56 AM
== END | disposition home or self-care (01) ==
LOC: C.RDSM 16:50
PROVIDERS: ATTEND Physician Assistant
DX: M16.11 Unilateral primary osteoarthritis, right hip (principal)

== ENCOUNTER → 2018-01-18 | Outpatient (CLI) | payer BC ==
[2018-01-18 13:07] LABS: HEMOGLOBIN A1C 6.6 % (4.5-5.6)
== END | disposition home or self-care (01) ==
LOC: C.LABPBG 09:08
PROVIDERS: ATTEND Physician Assistant
DX: E11.9 Type 2 diabetes mellitus without complications (principal)

== ENCOUNTER → 2018-06-06 | Outpatient (CLI) | payer BC ==
[~2018-06-06] MED LIST changes: -IBUP-103 PO; +METH25TA3 PO; -NEPTAZANE PO; +OXYC-57 PO; +WARF2TAB PO
== END | disposition home or self-care (01) ==
LOC: C.LABPBG 12:07
PROVIDERS: ATTEND Physician Assistant
DX: R39.9 Unspecified symptoms and signs involving the genitourinary system (principal)

== ENCOUNTER → 2018-06-13 | Outpatient (CLI) | payer BC | END | disposition home or self-care (01) | LOC: C.RDSM 11:13 | PROVIDERS: ATTEND Physical Medicine & Rehabilitation Sports Medicine | DX: Z96.643 Presence of artificial hip joint, bilateral (principal) ==